=== PATIENT | female | born 1935 | race Caucasian/White ===

== ENCOUNTER 2018-01-28 11:56 | Observation (INO) | payer MEDICARE, BC ==
[2018-01-28] VITALS (10 sets, daily range): BP systolic 124–155; BP diastolic 49–70; PULSE 56–63; RESP 16–20; TEMP 95.6–97.5; O2SAT 96–98
[~2018-01-28] VITALS: Ht 170.2 cm; Wt 70.4 kg
[2018-01-28] MEDS ORDERED: LISI2.5T3 PO (12:15)
[2018-01-28] MEDS ORDERED: SODIUM CHLORID 0.9% 500 ML INJ 500 ML IV ONE (12:15)
[2018-01-28] MEDS ORDERED: SODIUM CHLORIDE 0.9% FLUSH 10 ML FLUSH IVF PRN (12:15)
[2018-01-28] MEDS ORDERED: WARF-58 PO (12:15)
[2018-01-28] MEDS ORDERED: NORT50CA PO (12:15)
[2018-01-28] MEDS ORDERED: PACE200T PO (12:15)
[2018-01-28] MEDS ORDERED: KLOR20TA3 PO (12:15)
[2018-01-28] MEDS ORDERED: METF500T PO (12:15)
[2018-01-28] MEDS ORDERED: ROPI1TAB PO (12:15)
[2018-01-28] MEDS ORDERED: FURO20TA PO (12:15)
[2018-01-28] MEDS ORDERED: TRAM50TA PO (12:15)
[2018-01-28] MEDS ORDERED: ISOS30TA3 PO (12:15)
[2018-01-28] MEDS ORDERED: LEVO50TA4 PO (12:15)
[2018-01-28 12:34] LABS: AUTOMATED NEUTROPHIL # 6.2 TH/MM3 (1.8-7.7); BASOPHIL % 0.3 % (0.0-2.0); EOSINOPHIL % 0.3 % (0.0-4.0); HEMATOCRIT 36.6 % (35.0-46.0); HEMOGLOBIN 11.7 GM/DL (11.6-15.3); LYMPH % 8.9 % (9.0-44.0); LYMPHOCYTE # 0.7 TH/MM3 (1.0-4.8); MEAN CELL VOLUME 80.2 FL (80.0-100.0); MEAN CORPUSCULAR HEMOGLOBIN 25.7 PG (27.0-34.0); MEAN PLATELET VOLUME 8.2 FL (7.0-11.0); MONO % 5.7 % (0.0-8.0); MONOCYTE # 0.4 TH/MM3 (0-0.9); NEUT % 84.8 % (16.0-70.0); PLATELET COUNT 210 TH/MM3 (150-450); RED BLOOD COUNT 4.57 MIL/MM3 (4.00-5.30); RED CELL DISTRIBUTION WIDTH 17.3 % (11.6-17.2); WHITE BLOOD COUNT 7.4 TH/MM3 (4.0-11.0)
[2018-01-28 12:44] LABS: CHLORIDE 109 MEQ/L (98-107); SODIUM (NA) 140 MEQ/L (136-145)
[2018-01-28 12:47] LABS: INTERNATIONAL NORMALIZED RATIO 1.7 RATIO; PROTHROMBIN TIME - PATIENT 17.3 SEC (9.8-11.6)
[2018-01-28 12:48] LABS: CALCIUM 8.4 MG/DL (8.5-10.1)
[2018-01-28 12:49] LABS: ALBUMIN 3.1 GM/DL (3.4-5.0); BICARBONATE 24.1 MEQ/L (21.0-32.0); BLOOD UREA NITROGEN 17 MG/DL (7-18); GLUCOSE,RANDOM 158 MG/DL (74-106)
[2018-01-28 12:52] LABS: ALT (GPT) 16 U/L (10-53); AST (GOT) 18 U/L (15-37)
[2018-01-28 12:53] LABS: GLOMERULAR FILTRATION RATE 47 ML/MIN (>89); TOTAL BILIRUBIN ADULT 0.9 MG/DL (0.2-1.0); TOTAL PROTEIN 6.3 GM/DL (6.4-8.2)
[2018-01-28 12:55] LABS: ALKALINE PHOSPHATASE 89 U/L (45-117)
[2018-01-28 12:57] LABS: TROPONIN I LESS THAN 0.02 NG/ML (0.02-0.05)
--- NOTE | 2018-01-28 13:04 | PD ---
HPI Chief Complaint: Syncope/Near-Syncope Time Seen by Provider: 12:02 Travel History International Travel<30 days: No Contact w/Intl Traveler<30days: No Traveled to known affect area: No History of Present Illness HPI Patient is an 83-year-old female presents emergency department for evaluation of syncopal episode. Patient states she is on amitriptyline and spent a significant amount of time in the sun yesterday and sunburn. She is from [facility]. She has a history of atrial fibrillation with no history of congestive heart failure coronary artery disease. She denies any chest pain palpitations shortness of breath abdominal pain nausea or vomiting now or leading up to the event today. She is on Coumadin but denies hitting her head. Apparently the patient was having breakfast today when she just slumped over in her chair for about 2 minutes. Family called 911. Awaiting arrival for additional history. Patient has no complaints currently. Symptoms mild, resolved, context and associated signs and symptoms as above PFSH Past Medical History Atrial Fibrillation: Yes Diabetes: Yes Patient Takes Glucophage: Yes Hypertension: Yes Thyroid Disease: Yes Influenza Vaccination: Yes ?: Not Past Surgical History Hysterectomy: Yes Social History Alcohol Use: No Tobacco Use: No Substance Use: No Allergies-Medications (Allergen,Severity, Reaction): Coded Allergies: codeine (Verified Allergy, Unknown, "SO LONG AGO, I DON'T REMEMBER", ) Reported Meds & Prescriptions Reported Meds & Active Scripts Active Reported Tramadol (Tramadol HCl) 50 Mg Tab 50 Mg PO Q6H PRN Nortriptyline (Nortriptyline HCl) 50 Mg Cap 50 Mg PO HS Levothyroxine (Levothyroxine Sodium) 50 Mcg Tab 50 Mcg PO DAILY Warfarin 3 Mg Tab 3 Mg PO DAILY Ropinirole 1 Mg Tab 1 Mg PO HS Pacerone (Amiodarone HCl) 200 Mg Tab 200 Mg PO DAILY Metformin (Metformin HCl) 500 Mg Tab 500 Mg PO DAILY With a meal Lisinopril 2.5 Mg Tab 2.5 Mg PO DAILY Klor-Con M20 (Potassium Chloride Microencaps) 20 Meq Tab 20 Meq PO DAILY Isosorbide Mononitrate ER (Isosorbide Mononitrate) 30 Mg Louise 30 Mg PO DAILY Furosemide 20 Mg Tab 20 Mg PO DAILY Review of Systems Except as stated in HPI: all other systems reviewed are Neg Physical Exam Narrative GENERAL: Well-developed well-nourished SKIN: Patient has some sunburn on her face over the maxilla, forehead, upper extremities and lower extremities. Torso sparing. Skin turgor is slightly decreased. HEAD: Atraumatic. Normocephalic. EYES: Pupils equal and round. No scleral icterus. No injection or drainage. ENT: No nasal bleeding or discharge. Mucous membranes pink and moist. NECK: Trachea midline. No JVD. CARDIOVASCULAR: Regular rhythm with minimal bradycardia.. No murmur appreciated. RESPIRATORY: No accessory muscle use. Clear to auscultation. Breath sounds equal bilaterally. GASTROINTESTINAL: Abdomen soft, non-tender, nondistended. Hepatic and splenic margins not palpable. MUSCULOSKELETAL: No obvious deformities. No clubbing. No cyanosis. No edema. NEUROLOGICAL: Awake and alert. No obvious cranial nerve deficits. Motor grossly within normal limits. Normal speech. PSYCHIATRIC: Appropriate mood and affect; insight and judgment normal. Data Data Last Documented VS Vital Signs Date Time Temp Pulse Resp B/P (MAP) Pulse Ox O2 Delivery O2 Flow Rate FiO2 01/28/18 14:00 63 16 152/49 (83) 98 Room Air 01/28/18 12:02 97.5 Orders Orders Electrocardiogram (01/28/18 ) Complete Blood Count With Diff (01/28/18 12:14) Comprehensive Metabolic Panel (01/28/18 12:14) Ckmb (Isoenzyme) Profile (01/28/18 12:14) Troponin I (01/28/18 12:14) Act Partial Throm Time (Ptt) (01/28/18 12:14) Prothrombin Time / Inr (Pt) (01/28/18 12:14) Urinalysis - C+S If Indicated (01/28/18 12:14) Ecg Monitoring (01/28/18 12:14) Iv Access Insert/Monitor (01/28/18 12:14) Oximetry (01/28/18 12:14) Sodium Chloride 0.9% Flush (Ns Flush) (01/28/18 12:15) Sodium Chlorid 0.9% 500 Ml Inj (Ns 500 M (01/28/18 12:15) Admit Order (Ed Use Only) (01/28/18 ) Labs Laboratory Tests Test 01/28/18 12:25 White Blood Count 7.4 TH/MM3 Red Blood Count 4.57 MIL/MM3 Hemoglobin 11.7 GM/DL Hematocrit 36.6 % Mean Corpuscular Volume 80.2 FL Mean Corpuscular Hemoglobin 25.7 PG Mean Corpuscular Hemoglobin Concent 32.0 % Red Cell Distribution Width 17.3 % Platelet Count 210 TH/MM3 Mean Platelet Volume 8.2 FL Neutrophils (%) (Auto) 84.8 % Lymphocytes (%) (Auto) 8.9 % Monocytes (%) (Auto) 5.7 % Eosinophils (%) (Auto) 0.3 % Basophils (%) (Auto) 0.3 % Neutrophils # (Auto) 6.2 TH/MM3 Lymphocytes # (Auto) 0.7 TH/MM3 Monocytes # (Auto) 0.4 TH/MM3 Eosinophils # (Auto) 0.0 TH/MM3 Basophils # (Auto) 0.0 TH/MM3 CBC Comment DIFF FINAL Differential Comment Prothrombin Time 17.3 SEC Prothromb Time International Ratio 1.7 RATIO Activated Partial Thromboplast Time 27.8 SEC Blood Urea Nitrogen 17 MG/DL Creatinine 1.10 MG/DL Random Glucose 158 MG/DL Total Protein 6.3 GM/DL Albumin 3.1 GM/DL Calcium Level 8.4 MG/DL Alkaline Phosphatase 89 U/L Aspartate Amino Transf (AST/SGOT) 18 U/L Alanine Aminotransferase (ALT/SGPT) 16 U/L Total Bilirubin 0.9 MG/DL Sodium Level 140 MEQ/L Potassium Level 4.0 MEQ/L Chloride Level 109 MEQ/L Carbon Dioxide Level 24.1 MEQ/L Anion Gap 7 MEQ/L Estimat Glomerular Filtration Rate 47 ML/MIN Total Creatine Kinase 52 U/L Troponin I LESS THAN 0.02 NG/ML [facility] Medical Decision Making Medical Screen Exam Complete: Yes Emergency Medical Condition: Yes Interpretation(s) 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 No concerning ST segment changes. Sinus bradycardia. Intervals otherwise within normal limits. This is an abnormal EKG without previous comparison. Differential Diagnosis Dehydration, acute kidney injury, rhabdomyolysis, ACS, MO, Narrative Course Patient was roomed in the emergency department, she appears somewhat rundown and mildly dehydrated, she was given a total of a liter of normal saline between myself and EMS. Initial workup shows only a right bundle branch block and left anterior fascicular block with the patient states she has a history of. Labs are otherwise reassuring. Troponin negative, creatinine negative. Initially the patient stated that she wanted to go home and her daughter wanted to take her home. They wanted to speak with the patient's son-in-law. patient son-in-law and granddaughter arrived and stated the patient actually was somewhat hard to arouse. They are concerned with the symptoms I saw earlier today and would like the patient to be observation status for syncope which I think is reasonable. Patient has not had any shortness of breath symptoms and I think PE is therefore unlikely. Diagnosis Primary Impression: Syncope Qualified Codes: R55 - Syncope and collapse Additional Impressions: Dehydration Sunburn Admitting Information Admitting Physician Requests: Observation Patient Instructions: General Instructions, Sunburn (DC), Syncope (DC) Additional Instructions: Stay hydrated in the [place] sun, another episode should happen I recommend he return to the nearest ER for an additional evaluation. If you begin to have any chest pain heart fluttering or any concerning symptoms return to the emergency department. Condition: Stable Kevin Bryant MD January 28, 2018 13:04
[2018-01-28] MEDS ORDERED: MAGNESIUM HYDROXIDE SUSP 30 ML CUP PO PRN (15:00)
[2018-01-28] MEDS ORDERED: ONDANSETRON HCL 4 MG/2 ML VIAL IVP PRN (15:00)
[2018-01-28] MEDS ORDERED: NALOXONE HCL 0.4 MG/ML AMP IV PUSH PRN (15:00)
[2018-01-28] MEDS ORDERED: traMADol HCL 50 MG TAB PO PRN (15:00)
[2018-01-28] MEDS ORDERED: SODIUM CHLORIDE 0.9% FLUSH 10 ML FLUSH IV FLUSH PRN (15:00)
[2018-01-28] MEDS ORDERED: ACETAMINOPHEN 325 MG TAB PO PRN ×2 (15:00)
[2018-01-28] MEDS ORDERED: PILL SPLITTER OTHER PRN (15:00)
[2018-01-28] MEDS ORDERED: DEXTROSE 50% IN WATER 50 ML VIAL(D50) IV PUSH PRN (15:15)
[2018-01-28] MEDS ORDERED: GLUCAGON 1 MG/ML VIAL OTHER PRN (15:15)
[2018-01-28 15:17] LABS: BILIRUBIN, URINE NEG (NEG); BLOOD, URINE NEG (NEG); GLUCOSE,URINE NEG (NEG); KETONE, URINE NEG (NEG); NITRITE,URINE NEG (NEG); PH, URINE 5.5 (5.0-8.5); URINE COLOR YELLOW (YELLW/STRAW); URINE LEUKOCYTE ESTERASE SMALL (NEG)
[2018-01-28 15:23] LABS: BACTERIA, URINE MANY /hpf
--- NOTE | 2018-01-28 15:32 | HHI.HP ---
[facility] Admission Diagnosis Syncope Diagnoses: (1) Syncope Diagnosis: Principal (2) Dehydration Diagnosis: Principal (3) Azotemia Diagnosis: Principal Chief Complaint: Syncope Travel History International Travel<30 Days: No Contact w/Intl Traveler <30 Da: No Traveled to Known Affected Are: No History of Present Illness Written by Carlton Appiah, acting as scribe for Dr. Gary on 01/28/18 at 15: 26. 83-year-old female with known history of hypertension, diabetes, atrial fibrillation, hypothyroidism who presented to the hospital because of syncopal episode. Patient is down here visiting her daughter from [place] and they went to the beach yesterday and the patient did not drink that much. She only had one Mountain Dew and one sweet tea. She was sitting on her canopy however she got significantly sunburn. They went to breakfast this morning and while they are having breakfast the patient indicates that she had some weird vision change while she was looking out and then next thing she remembers is somebody saying [employer]. The daughter indicates that she was sitting next to the patient and the patient slumped over to her left side and was unconscious they lowered her to a lower chair. Approximately 2 minutes passed by and the patient regained consciousness however she was confused not able to answer any orientation questions. However there is no indication of any visual disturbances at that time, slurred speech, drooling, tremors, loss of bowel or bladder control, unilateral weakness. The daughter indicates that the patient became completely coherent after they said the word [employer]ver [employer]. The approximate time of disorientation was 3-4 minutes. Presently the patient is doing well. She is completely alert and orientated. Review of Systems Cardiovascular: COMPLAINS OF: Syncope Except as stated in HPI: all other systems reviewed are Neg Past Family Social History Past Medical History Hypertension Atrial fibrillation Hypothyroidism Diabetes Restless leg syndrome Past Surgical History Hysterectomy Left knee replacement Cholecystectomy Appendectomy Reported Medications Reported Meds & Active Scripts Active Reported Tramadol (Tramadol HCl) 50 Mg Tab 50 Mg PO Q6H PRN Nortriptyline (Nortriptyline HCl) 50 Mg Cap 50 Mg PO HS Levothyroxine (Levothyroxine Sodium) 50 Mcg Tab 50 Mcg PO DAILY Warfarin 3 Mg Tab 3 Mg PO DAILY Ropinirole 1 Mg Tab 1 Mg PO HS Pacerone (Amiodarone HCl) 200 Mg Tab 200 Mg PO DAILY Metformin (Metformin HCl) 500 Mg Tab 500 Mg PO DAILY With a meal Lisinopril 2.5 Mg Tab 2.5 Mg PO DAILY Klor-Con M20 (Potassium Chloride Microencaps) 20 Meq Tab 20 Meq PO DAILY Isosorbide Mononitrate ER (Isosorbide Mononitrate) 30 Mg Louise 30 Mg PO DAILY Furosemide 20 Mg Tab 20 Mg PO DAILY Allergies: Coded Allergies: codeine (Verified Allergy, Unknown, "SO LONG AGO, I DON'T REMEMBER", ) Family History Family history is reviewed and significant for father having cancer of unknown kind, mother with heart disease, Alzheimer's Social History Patient denies any tobacco, alcohol or illicit drugs Physical Exam Vital Signs Vital Signs Date Time Temp Pulse Resp B/P (MAP) Pulse Ox O2 Delivery O2 Flow Rate FiO2 01/28/18 15:03 62 17 142/58 (86) 98 Room Air 01/28/18 14:00 63 16 152/49 (83) 98 Room Air 01/28/18 12:56 56 16 140/56 (84) 96 Room Air 01/28/18 12:30 Room Air 01/28/18 12:20 97 Room Air 01/28/18 12:02 97.5 60 18 124/57 (79) 98 Physical Exam GENERAL: Well-developed, well-nourished, in no acute distress. alert and orientated HEENT: Head is normocephalic without any lesions or masses noted. Facial features are symmetric. Eyes: Pupils equal round reactive to light. Extraocular muscles are intact. Conjunctivae were clear. Oropharyngeal: Pharynx without any erythema edema. Tongue is midline without deviation. Buccal mucosa is moist without any masses or lesions NECK: Supple without any masses. Trachea midline no deviation. No JVD, no bruits are appreciated CARDIAC: Regular rhythm, regular rate. S1/S2 are heard. No murmurs gallops or rubs. LUNGS: Clear to auscultation bilaterally. No wheeze, rhonchi or rales. No use of accessory muscles on inspiration or expiration. ABDOMEN: Soft, nontender. Nondistended. Bowel sounds heard in all 4 quadrants. No organomegaly or masses. Negative rebound, negative guarding EXTREMITIES: No edema, pulses are equal bilaterally. No cyanosis or clubbing NEUROLOGY: Mood and affect appear appropriate. Cranial nerves II through XII grossly intact. Muscle strength 5/5 in upper and lower extremities bilaterally. Deep tendon reflexes are 2+ in upper and lower extremities bilaterally. Laboratory Laboratory Tests Test 01/28/18 12:25 01/28/18 14:50 White Blood Count 7.4 Red Blood Count 4.57 Hemoglobin 11.7 Hematocrit 36.6 Mean Corpuscular Volume 80.2 Mean Corpuscular Hemoglobin 25.7 Mean Corpuscular Hemoglobin Concent 32.0 Red Cell Distribution Width 17.3 Platelet Count 210 Mean Platelet Volume 8.2 Neutrophils (%) (Auto) 84.8 Lymphocytes (%) (Auto) 8.9 Monocytes (%) (Auto) 5.7 Eosinophils (%) (Auto) 0.3 Basophils (%) (Auto) 0.3 Neutrophils # (Auto) 6.2 Lymphocytes # (Auto) 0.7 Monocytes # (Auto) 0.4 Eosinophils # (Auto) 0.0 Basophils # (Auto) 0.0 CBC Comment DIFF FINAL Differential Comment Prothrombin Time 17.3 Prothromb Time International Ratio 1.7 Activated Partial Thromboplast Time 27.8 Blood Urea Nitrogen 17 Creatinine 1.10 Random Glucose 158 Total Protein 6.3 Albumin 3.1 Calcium Level 8.4 Alkaline Phosphatase 89 Aspartate Amino Transf (AST/SGOT) 18 Alanine Aminotransferase (ALT/SGPT) 16 Total Bilirubin 0.9 Sodium Level 140 Potassium Level 4.0 Chloride Level 109 Carbon Dioxide Level 24.1 Anion Gap 7 Estimat Glomerular Filtration Rate 47 Total Creatine Kinase 52 Troponin I LESS THAN 0.02 Urine Collection Type CLEAN CATCH Urine Color YELLOW Urine Turbidity SL CLOUDY Urine pH 5.5 Urine Specific [place] 1.020 Urine Protein NEG Urine Glucose (UA) NEG Urine Ketones NEG Urine Occult Blood NEG Urine Nitrite NEG Urine Bilirubin NEG Urine Urobilinogen 0.2 Urine Leukocyte Esterase SMALL Urine WBC 6-8 Urine Squamous Epithelial Cells 6-8 Urine Bacteria MANY Microscopic Urinalysis Comment CULTURE INDICATED Urine Collection Time 14:50 Date/Time Source Procedure Growth Status 01/28/18 14:50 Urine Clean Catch Urine Culture Pending Received Result Diagram: 01/28/18 1225 01/28/18 1225 Imaging Last Impressions Head CT 01/28/18 0000 Signed Impressions: CONCLUSION: Negative CT Head non contrast. Caprini VTE Risk Assessment Caprini VTE Risk Assessment: Mod/High Risk (score >= 2) Caprini Risk Assessment Model Point Value = 1 Point Value = 2 Point Value = 3 Point Value = 5 Age 41-60 Minor surgery BMI > 25 kg/m2 Swollen legs Varicose veins or History of unexplained or recurrent spontaneous Oral contraceptives or hormone replacement Sepsis (< 1 month) Serious lung disease, including pneumonia (< 1 month) Abnormal pulmonary function Acute myocardial infarction Congestive heart failure (< 1 month) History of inflammatory bowel disease Medical patient at bed rest Age 61-74 Arthroscopic surgery Major open surgery (> 45 min) Laparoscopic surgery (> 45 min) Malignancy Confined to bed (> 72 hours) Immobilizing plaster cast Central venous access Age >= 75 History of VTE Family history of VTE Factor V Leiden Prothrombin [id number] Lupus anticoagulant Anticardiolipin antibodies Elevated serum homocysteine Heparin-induced thrombocytopenia Other congenital or acquired thrombophilia Stroke (< 1 month) Elective arthroplasty Hip, pelvis, or leg fracture Acute spinal cord injury (< 1 month) Prophylaxis Regimen Total Risk Factor Score Risk Level Prophylaxis Regimen 0-1 Low Early ambulation 2 Moderate Order ONE of the following: *Sequential Compression Device (SCD) *Heparin 5000 units SQ BID 3-4 Higher Order ONE of the following medications: *Heparin 5000 units SQ TID *Enoxaparin/Lovenox 40 mg SQ daily (WT < 150 kg, CrCl > 30 mL/min) *Enoxaparin/Lovenox 30 mg SQ daily (WT < 150 kg, CrCl > 10-29 mL/min) *Enoxaparin/Lovenox 30 mg SQ BID (WT < 150 kg, CrCl > 30 mL/min) AND/OR *Sequential Compression Device (SCD) 5 or more Highest Order ONE of the following medications: *Heparin 5000 units SQ TID (Preferred with Epidurals) *Enoxaparin/Lovenox 40 mg SQ daily (WT < 150 kg, CrCl > 30 mL/min) *Enoxaparin/Lovenox 30 mg SQ daily (WT < 150 kg, CrCl > 10-29 mL/min) *Enoxaparin/Lovenox 30 mg SQ BID (WT < 150 kg, CrCl > 30 mL/min) AND *Sequential Compression Device (SCD) Assessment and Plan Assessment and Plan 83-year-old female who was brought to the hospital for evaluation of syncopal episode Syncope -Multifactorial and patient that is visiting from [place] who has sunburn, dehydration, acute kidney injury, medication side effect, possible urinary tract infection -CT of the head was unremarkable -Obtain orthostatic vitals -Obtain carotid ultrasound -Obtain orthostatic vitals Acute kidney injury, unknown if patient has chronic kidney disease -Continue IV fluid -Monitor renal function -Avoid nephrotoxins Urinary tract infection -Specimen likely contaminated with 6-8 epithelial cells. Continue to follow culture for appropriate treatment Hypertension, chronic atrial fibrillation -Home medications have been continued -Patient anticoagulated on Coumadin, INR 1.7 Diabetes -Metformin was continued -Accu-Cheks with sliding scale insulin DVT prevention -Patient anticoagulated on Coumadin This note was transcribed by juice Appiah. I, Dr. Reji Gary personally performed the history, physical exam, and medical decision making; and confirmed the accuracy of the information in the transcribed note. Authenticated by Dr. Reji Gary on 01/28/18 at 15:26. Code Status Full code Discussed Condition With Patient, daughter at bedside, nursing staff, ER physician Carlton Appiah January 28, 2018 15:32 Reji Gary MD January 28, 2018 15:33
--- NOTE | 2018-01-28 15:38 | RADRPT ---
EXAM DATE: 01/28/2018 3:26 PM EDT AGE/SEX: 83 years / Female INDICATIONS: Syncopal episode. CLINICAL DATA: This is the patient's initial encounter. Patient reports that signs and symptoms have been present for 1 day and indicates a pain score of 0/10. MEDICAL/SURGICAL HISTORY: Cardiovascular disease. Hypertension. Diabetes. Hysterectomy. RADIATION DOSE: 46.96 CTDI (mGy) COMPARISON: No prior [place] exams available for comparison. TECHNIQUE: CT of the head without contrast. Using automated exposure control and adjustment of the mA and/or kV according to patient size, radiation dose was kept as low as reasonably achievable to ob tain optimal diagnostic quality images. FINDINGS: Cerebrum: The ventricles are normal for age. No evidence of midline shift, mass lesion, hemorrhage or acute infarction. No extraaxial fluid collections are seen. Posterior Fossa: The cerebellum and brainstem are intact. The 4th ventricle is midline. The cerebe llopontine angle is unremarkable. Extracranial: The visualized portion of the orbits is intact. Skull: The calvaria is intact. No evidence of skull fracture. CONCLUSION: Negative CT Head non contrast. Electronically signed by: Be Chua MD 01/28/2018 3:36 PM EDT
[2018-01-28] MEDS ORDERED: WARFARIN SOD 3 MG TAB PO SCH (16:00)
[2018-01-28] MEDS ORDERED: SODIUM CHLOR 0.9% 1000 ML INJ 1,000 ML IV SCH (16:45)
[2018-01-28] MEDS: INSULIN ASPART SUPPLEMENTAL SCALE SQ SCH ×2 (16:54→21:00)
--- NOTE | 2018-01-28 17:47 | RADRPT ---
EXAM DATE: 01/28/2018 5:39 PM EDT AGE/SEX: 83 years / Female INDICATIONS: Syncope. CLINICAL DATA: This is the patient's initial encounter. Patient reports that signs and symptoms have been present for 1 day and indicates a pain score of 0/10. MEDICAL/SURGICAL HISTORY: Hypertension. Diabetes. Atrial fibrillation. Thyroid disease. Hyste rectomy. Knee surgery. COMPARISON: No prior [place] exams available for comparison. No external comparison. VELOCITY PARAMETERS: ICA/CCA Ratio: Right 1.2 , Left 1.3 ICA: Right 102 cm/sec, Left 123 cm/sec CCA: Right 88 cm/sec, Left 94 cm/sec ECA: Right 102 cm/sec, Left 68 cm/sec Vertebral: Right 62 cm/sec antegrade, Left 51 cm/sec antegrade FINDINGS: Right Carotid: No significant stenosis is visualized. The waveforms are within normal limits. Left Carotid: No significant stenosis is visualized. The waveforms are within normal limits. Other: None. CONCLUSION: No evidence of flow-limiting carotid stenosis. Electronically signed by: Be Chua MD 01/28/2018 5:45 PM EDT
[2018-01-28] MEDS: SODIUM CHLORIDE 0.9% FLUSH 10 ML FLUSH IV FLUSH SCH (20:57)
[2018-01-28] MEDS ORDERED: NORTRIPTYLINE HCL 25 MG CAP PO SCH (21:00)
[2018-01-29] VITALS: BP 145/65; PULSE 70; RESP 20; TEMP 96.6; O2SAT 99
[2018-01-29] MEDS ORDERED: LEVOTHYROXINE SODIUM 50 MCG TAB PO SCH (06:00)
[2018-01-29] MEDS ORDERED: ISOSORBIDE MONONITRATE 30 MG CR TAB (IMDUR) PO SCH (07:00)
[2018-01-29 07:36] LABS: CHLORIDE 111 MEQ/L (98-107); INTERNATIONAL NORMALIZED RATIO 1.9 RATIO; PROTHROMBIN TIME - PATIENT 19.6 SEC (9.8-11.6); SODIUM (NA) 142 MEQ/L (136-145)
[2018-01-29 07:41] LABS: ALBUMIN 2.6 GM/DL (3.4-5.0); BICARBONATE 21.9 MEQ/L (21.0-32.0); CALCIUM 8.1 MG/DL (8.5-10.1)
[2018-01-29 07:42] LABS: BLOOD UREA NITROGEN 14 MG/DL (7-18); GLUCOSE,RANDOM 84 MG/DL (74-106)
[2018-01-29 07:44] LABS: ALT (GPT) 15 U/L (10-53)
[2018-01-29 07:45] LABS: AST (GOT) 17 U/L (15-37); CREATININE 0.83 MG/DL (0.50-1.00); GLOMERULAR FILTRATION RATE 65 ML/MIN (>89)
[2018-01-29 07:46] LABS: TOTAL BILIRUBIN ADULT 0.7 MG/DL (0.2-1.0); TOTAL PROTEIN 5.4 GM/DL (6.4-8.2)
[2018-01-29 07:47] LABS: ALKALINE PHOSPHATASE 74 U/L (45-117); AUTOMATED NEUTROPHIL # 3.9 TH/MM3 (1.8-7.7); BASOPHIL % 0.4 % (0.0-2.0); EOSINOPHIL # 0.1 TH/MM3 (0-0.4); EOSINOPHIL % 1.2 % (0.0-4.0); HEMATOCRIT 33.2 % (35.0-46.0); HEMOGLOBIN 10.3 GM/DL (11.6-15.3); LYMPH % 20.1 % (9.0-44.0); LYMPHOCYTE # 1.1 TH/MM3 (1.0-4.8); MEAN CELL VOLUME 80.6 FL (80.0-100.0); MEAN PLATELET VOLUME 8.5 FL (7.0-11.0); MONO % 9.7 % (0.0-8.0); MONOCYTE # 0.5 TH/MM3 (0-0.9); NEUT % 68.6 % (16.0-70.0); PLATELET COUNT 203 TH/MM3 (150-450); RED BLOOD COUNT 4.12 MIL/MM3 (4.00-5.30); RED CELL DISTRIBUTION WIDTH 17.4 % (11.6-17.2); WHITE BLOOD COUNT 5.6 TH/MM3 (4.0-11.0)
[2018-01-29] MEDS: INSULIN ASPART SUPPLEMENTAL SCALE SQ SCH (08:00)
[2018-01-29] MEDS: SODIUM CHLORIDE 0.9% FLUSH 10 ML FLUSH IV FLUSH SCH (08:40)
[2018-01-29] MEDS ORDERED: AMIODARONE 200 MG TAB PO SCH (09:00)
[2018-01-29] MEDS ORDERED: POTASSIUM CHLORIDE 20 MEQ CONTROLLED RELEASE TAB PO SCH (09:00)
[2018-01-29] MEDS ORDERED: metFORMIN HCL 500 MG TAB PO SCH (09:00)
[2018-01-29] MEDS ORDERED: FUROSEMIDE 20 MG TAB PO SCH (09:00)
[2018-01-29] MEDS ORDERED: LISINOPRIL 5 MG TAB PO SCH (09:00)
--- NOTE | 2018-01-29 09:12 | HHI.PR ---
Subjective Remarks Follow-up syncope January 29, 2018-patient seen and examined, denies any more syncopal episodes since admission. She denies any dizziness, chest pain or shortness of breath. Tolerated p.o. without any competition nausea and vomiting this morning. Family member by the bedside. Objective Vitals Vital Signs Date Time Temp Pulse Resp B/P (MAP) Pulse Ox O2 Delivery O2 Flow Rate FiO2 01/29/18 00:00 96.6 70 20 145/65 (91) 99 01/28/18 20:00 95.6 59 20 131/70 (90) 97 01/28/18 17:14 130/61 (84) 01/28/18 17:13 131/62 (85) 01/28/18 17:12 96.0 56 17 135/60 (85) 97 01/28/18 16:27 54 16 155/59 (91) 01/28/18 15:03 62 17 142/58 (86) 98 Room Air 01/28/18 14:00 63 16 152/49 (83) 98 Room Air 01/28/18 12:56 56 16 140/56 (84) 96 Room Air 01/28/18 12:30 Room Air 01/28/18 12:20 97 Room Air 01/28/18 12:02 97.5 60 18 124/57 (79) 98 I/O 01/28/18 01/28/18 01/28/18 01/29/18 01/29/18 01/29/18 06:59 14:59 22:59 06:59 14:59 22:59 Intake Total 500 ml 480 ml 480 ml Output Total 300 ml 250 ml Balance 500 ml 180 ml 230 ml Intake Oral 480 ml 480 ml IV Total 500 ml Output Urine Total 300 ml 250 ml # Voids 2 # Bowel Movements 0 2 Result Diagram: 01/29/18 0617 01/29/18 0617 Imaging Last Impressions Head CT 01/28/18 0000 Signed Impressions: CONCLUSION: Negative CT Head non contrast. Carotid Artery Ultrasound 01/28/18 0000 Signed Impressions: CONCLUSION: No evidence of flow-limiting carotid stenosis. Objective Remarks GENERAL: NAD SKIN: Warm and dry. HEAD: Normocephalic. EYES: No scleral icterus. No injection or drainage. NECK: Supple, trachea midline. No JVD or lymphadenopathy. CARDIOVASCULAR: Regular rate and rhythm without murmurs, gallops, or rubs. RESPIRATORY: Breath sounds equal bilaterally. No accessory muscle use. GASTROINTESTINAL: Abdomen soft, non-tender, nondistended. MUSCULOSKELETAL: No cyanosis, or edema. BACK: Nontender without obvious deformity. No CVA tenderness. A/P Problem List: (1) Syncope ICD Code: R55 - Syncope and collapse Status: Resolved (2) Dehydration ICD Code: E86.0 - Dehydration Status: Resolved (3) Azotemia ICD Code: R79.89 - Other specified abnormal findings of blood chemistry Assessment and Plan 83-year-old female who was brought to the hospital for evaluation of syncopal episode Syncope -It appears that This is vasovagal -CT of the head was unremarkable -carotid ultrasound unremarkable Acute kidney injury, unknown if patient has chronic kidney disease -Improved with IV fluid -Monitor renal function -Avoid nephrotoxins Urinary tract infection -Specimen likely contaminated with 6-8 epithelial cells. Continue to follow culture for appropriate treatment Hypertension, chronic atrial fibrillation -Home medications have been continued -Patient anticoagulated on Coumadin, INR 1.7 Diabetes -Metformin was continued -Accu-Cheks with sliding scale insulin DVT prevention -Patient anticoagulated on Coumadin Discharge Planning Discharge patient to home Condition on discharge: Improved Regular Diet as tolerated [place] activity Rx written:None Follow-up with primary care physician in 1 week Reji Gary MD January 29, 2018 09:12
--- NOTE | 2018-01-29 13:30 | EKG ---
Date Performed: 01/28/2018 Time Performed: 12:09:07 PTAGE: 83 years EKG: SINUS BRADYCARDIA WITH FIRST DEGREE AV BLOCK RIGHT BUNDLE BRANCH BLOCK LEFT POSTERIOR FASCI CULAR BLOCK ABNORMAL ECG NO PREVIOUS TRACING DOCTOR: Abram Foster Interpretating Date/Time 01/29/2018 13:30:05
== END 2018-01-29 09:57 | disposition home or self-care (01) ==
LOC: PHED 11:56 → PHEDA 14:41 → PH3B 16:20
PROVIDERS: ADMIT Hospitalist; ATTEND Hospitalist
DX: R55 Syncope and collapse (principal); N39.0 Urinary tract infection, site not specified; B96.1 Klebsiella pneumoniae [K. pneumoniae] as the cause of diseases classified elsewhere; I48.2 Chronic atrial fibrillation; E11.9 Type 2 diabetes mellitus without complications; I10 Essential (primary) hypertension; E86.0 Dehydration; I45.2 Bifascicular block; R79.89 Other specified abnormal findings of blood chemistry; E03.9 Hypothyroidism, unspecified; G25.81 Restless legs syndrome; N17.9 Acute kidney failure, unspecified; L55.9 Sunburn, unspecified; Z79.84 Long term (current) use of oral hypoglycemic drugs; Z79.01 Long term (current) use of anticoagulants; Z96.652 Presence of left artificial knee joint; Z82.49 Family history of ischemic heart disease and other diseases of the circulatory system
CPT/HCPCS: 70450; 80053; 81001; 82550; 82948; 84484; 85025; 85610; 85730; 87077; 87086; 87186; 93005; 93880; 96360; 96361; 99285; G0378; J7030; J7040